=== PATIENT | female | born 1940 ===

== ENCOUNTER 2018-03-02 11:36 | Inpatient (IN) | payer OTHER ==
[~2018-03-02] VITALS: Ht 172.7 cm; Wt 59.9 kg
--- NOTE | ~2018-03-02 | PR ---
[place], [place] PROGRESS NOTE NAME: SAI KIMBROUGH UNIT #: [id number] ROOM: 312 DOCTOR: PENELOPE WESLEY MD BIRTHDATE: [birth year] DOS: 03/09/2018 CHIEF COMPLAINT: "Oh, I am so tired. I think if I just got a little more sleep I would be better." SUMMARY OF THE VISIT: The patient was interviewed as she was resting quietly in bed. She awoke easily and engaged readily in conversation, reporting that she was very drowsy this morning, but did get up have breakfast and went back to sleep. She was pleasantly confused and offered no other complaints. There was no agitation or aggression noted. MENTAL STATUS: She remains alert and oriented to person, possibly place, not to time. Mood does seem to be strongly trending towards euthymia. Affect is more appropriate. There is no des, hypomania or gross psychosis. Short term memory continues to be problematic. Otherwise, she is intact. PLAN: I will maintain her current psychotropic regimen, support and monitor, engage in individual and esparza milieu activity, returning to the least restrictive environment when psychiatrically stable. PENELOPE WESLEY MD CM:PNTRANS [id number] PENELOPE WESLEY MD 03/09/18 1413 interface
--- NOTE | ~2018-03-02 | PR ---
[place], [place] PROGRESS NOTE NAME: SAI KIMBROUGH UNIT #: [id number] ROOM: 312 DOCTOR: PENELOPE WESLEY MD BIRTHDATE: [birth year] DOS: 03/08/2018 INTERVAL NOTE CHIEF COMPLAINT: "Oh, hello there. Thank you for visiting." SUMMARY OF THE VISIT: The patient was interviewed as she was sitting having already eaten her breakfast. She smiled upon approach and engaged readily in conversation. She did report that she is hopeful to be able to get back to [place] in [place] soon. She was very conversant and engaging as compared to upon admission when she had a very hard time processing and answering questions appropriately. She smiled at the resident that was with me and remembered seeing her yesterday. MENTAL STATUS: She is alert and oriented with time gaps. Mood does seem to be trending towards euthymia. Affect is more appropriate. There is no des or hypomania. There are no gross auditory or visual hallucinations. Short-term memory continues to be problematic. Otherwise, she is intact. PLAN: I will renew her p.r.n. Ativan in case she requires intervention. Otherwise, maintain the current psychotropics, engage in individual and esparza milieu activity, returning then back to the assisted living in [place] when stable. PENELOPE WESLEY MD CM:PNTRANS [phone] PENELOPE WESLEY MD 03/09/18 0116 interface
--- NOTE | ~2018-03-02 | PR ---
[place], [place] PROGRESS NOTE NAME: SAI KIMBROUGH UNIT #: [id number] ROOM: 312 DOCTOR: PAMELA SANTORO MD BIRTHDATE: [birth year] DOS: 03/05/2018 SUBJECTIVE: The patient seen and spoke with the staff. Per staff, the patient is doing well. No behavior problems or issues. Medication compliant. The patient was in the day area she was with a group of other patient participating in activities. She reports doing good. She reports good sleep and appetite. She denied depressed mood or hopelessness. She denied any auditory or visual hallucination also. She feels that the medication is helping her. MENTAL STATUS EXAMINATION: Pleasant, cooperative. Describes her mood as "good." Affect, mood congruent. Thought process goal directed. No flight of ideas, loosening of association. She denied auditory or visual hallucination. No delusion or paranoia noted. She denies suicidal ideation, intent or plan. She also denied homicidal ideation, intent or plan. PLAN: 1. Please continue current medication and care. 2. Continue redirection. 3. Supportive care. PAMELA SANTORO MD CM:PNTRANS 193 PAMELA SANTORO MD 03/06/18 0934 interface
--- NOTE | ~2018-03-02 | PR ---
[place], [place] PROGRESS NOTE NAME: SAI KIMBROUGH UNIT #: [id number] ROOM: 312 DOCTOR: PENELOPE WESLEY MD BIRTHDATE: [birth year] DOS: 03/07/2018 CHIEF COMPLAINT: "Oh, yes I have been here about a month, thank you." SUMMARY OF THE VISIT: The patient was interviewed as she was sitting in the dining area. She had already completed breakfast. She could not tell me what she had eaten. She was pleasantly confused for the most part. Nurses report that she has been very confused over the weekend and needs constant reminders to be able to be prompted to do the right thing. MENTAL STATUS: She is alert and oriented to self only. It is unclear if she realizes she is in the hospital. She is certainly not oriented to time. Mood does seem to be fairly euthymic with some anxious fretful overtones. There is no des, hypomania or psychosis. Short-term memory is extremely problematic. PLAN: I will attempt to simplify her medication regimen. She has not been aggressive or agitated, so I will discontinue the Depakote and see if this improves mental status. Family and concerned others have reported that anxiety is one of her overriding issues that leads to her agitation. She does get good relief from the p.r.n. Ativan, so I will go ahead and order Ativan 0.5 mg 3 times a day. I will also maximize out Namenda from 5 mg b.i.d. to 10 mg b.i.d. support and monitor, engage in individual and esparza milieu, returning to the least restrictive environment when stable. PENELOPE WESLEY MD CM:PNTRANS 1120 PENELOPE WESLEY MD 03/07/18 1117 interface
--- NOTE | ~2018-03-02 | WRIGHTHP ---
[place], [place] PATIENT HISTORY AND PHYSICAL EXAM NAME: SAI KIMBROUGH UNIT #: [id number] ROOM: 312 DOCTOR: PENELOPE WESLEY MD BIRTHDATE: [birth year] DOS: 03/03/2018 INITIAL PSYCHIATRIC EVALUATION CHIEF COMPLAINT: "I wanted to get out and leave and they wouldn't let me, so I got very upset." HISTORY OF PRESENT ILLNESS: This is a 77-year-old white female who lives at [facility] in [place]. The patient was sent here after becoming increasingly aggressive at the facility. She had been striking out at residents and visitors with her cane. When attempted to be redirected, she became even more agitated. She had attempted to elope on multiple occasions and again when attempted to be redirected by staff, she became both verbally and physically aggressive. Staff there feared for her safety as well as the safety of other resident's, visitors, and themselves and felt that an inpatient stabilization was warranted. PAST MEDICAL HISTORY: Remarkable for coronary artery disease, congestive heart failure, GERD, hyperlipidemia, hypertension, hypothyroidism, ovarian cyst, and restless leg syndrome. SOCIAL HISTORY: The patient does not drink alcohol, use illicit drugs, or smoke cigarettes. FAMILY HISTORY: Positive for cancer and diabetes. ALLERGIES: She lists multiple allergies to PENICILLIN, STATINS, TETRACYCLINE, VOLTAREN, MORPHINE AND QUININE. STRENGTHS: Ambulatory, good verbal skills. WEAKNESSES: Poor coping skills, cognitive impairment. MENTAL STATUS: She is alert and oriented to person, place, not time. Mood does seem to be somewhat labile. Affect is inappropriate at times. There is a delusional quality and some paranoia present. She processes information slowly. Short term memory remains problematic. DIAGNOSIS: Brief psychotic disorder and Alzheimer's dementia. PLAN: I am going to go ahead and discontinue her Valium to simplify her regimen. Start Invega 3 mg in the morning to combat the delusional system. Her screening examination show her to have a low vitamin D level of 27.2. So I will augment with vitamin D 5000 international units daily, vitamin B12 is low normal at 322. I will order vitamin B12 injection 1000 mcg IM monthly. I did already start Depakote 250 mg 3 times a day to decrease some of her mood lability and impulsivity. We will attempt to engage her in individual and esparza milieu activity, returning then to the least restrictive environment when psychiatrically stable. [place], [place] PATIENT HISTORY AND PHYSICAL EXAM NAME: SAI KIMBROUGH UNIT #: [id number] ROOM: [facility] DOCTOR: PENELOPE WESLEY MD BIRTHDATE: [birth year] PENELOPE WESLEY MD CM:HISPHYS:PATIENT HISTORY AND PHYSICAL EXAMINATION [id number] PENELOPE WESLEY MD 03/03/18 1255 interface
--- NOTE | ~2018-03-02 | EKG ---
[place], [place] ELECTROCARDIOGRAM REPORT NAME: SAI KIMBROUGH UNIT #: [id number] ROOM: 312 DOCTOR: AVINASH DRAFT REPORT BIRTHDATE: [birth year] [facility] Test Date: 2018-03-04 Test Time: 10:39:45 Pat Name: SAI KIMBROUGH Department: Room: 312 2 Gender: F Warehouse Hand: CINDY : 1940 Requested By: YURIDIA OLMOS Order Number: [id number] Reading MD: Kelly Cain MD Measurements Intervals [place] Rate: 61 P: AL: QRS: -13 QRSD: 81 T: -74 QT: 445 QTc: 449 Interpretive Statements Atrial fibrillation with controlled ventricular rates Borderline low voltage, extremity leads Abnormal R-wave progression, early transition No previous ECG available for comparison Electronically Signed On 03-04-2018 8:40:25 PDT by Kelly Cain MD CM:EKGRPT:ELECTROCARDIOGRAM REPORT [id number] YURIDIA JOY DRAFT REPORT YURIDIA OLMOS DO
--- NOTE | ~2018-03-02 | PR ---
[place], [place] PROGRESS NOTE NAME: SAI KIMBROUGH UNIT #: [id number] ROOM: 312 DOCTOR: PAMELA SANTORO MD BIRTHDATE: [birth year] DOS: 03/06/2018 SUBJECTIVE: The patient seen and I spoke with the staff. Per staff, the patient is pleasantly confused. No behavior problems or issues, needs redirection. The patient was pleasant and cooperative. She was sitting in the day area. She reports doing well, denied any problems or concerns. She said that she slept well last night and also reports good appetite. MENTAL STATUS EXAMINATION: The patient was pleasant and cooperative. Described her mood as "okay." Affect, mood congruent. Thought processes with confabulation. She denied auditory or visual hallucination. No delusion or paranoia noticed. She denies suicidal ideation, intent or plan. She also denied homicidal ideation, intent or plan. PLAN: 1. Continue current medications and care. 2. Continue redirection. 3. Supportive care. PAMELA SANTORO MD CM:PNTRANS [phone] PAMELA SANTORO MD 03/07/18132 interface
--- NOTE | ~2018-03-02 | DS ---
[place], [place] DISCHARGE SUMMARY NAME: SAI KIMBROUGH UNIT #: [id number] ROOM: 312 DOCTOR: PENELOPE WESLEY MD BIRTHDATE: [birth year] DOS: 03/10/2018 CHIEF COMPLAINT: "I want to get out and leave and they wouldn't let me leave, so I got very upset." HISTORY OF PRESENT ILLNESS: This is a 77-year-old white female who resides at [facility] in [place], [place]. The patient was sent here after becoming increasingly aggressive at the facility. She had been striking out at residents and visitors with her cane. When staff attempted to redirect her, she became even more agitated. She had attempted to elope the facility on multiple occasions and again when redirected became both verbally and physically aggressive towards staff. Staff at the facility feared for her safety as well as the safety of other residents, visitors and themselves and felt that an inpatient stabilization was warranted. The patient was admitted then to the [facility] to rule out organic factors, to stabilize on medication, to engage in individual and esparza milieu activity and to determine the least restrictive environment to which she could be returned. SUMMARY OF HOSPITAL COURSE: The patient was admitted to the unit where she was found to be grossly delusional and paranoid. She was also very confused and disoriented. Routine screening examinations upon admission showed her to have a low vitamin D level of 27.2, so vitamin D 5000 International Units daily was prescribed. Her vitamin B12 level was low normal at 322, so she was started on vitamin B12 injections 1000 mcg IM monthly. Initially, she was started on Depakote 250 mg 3 times a day as well as low dose Invega 3 mg in the morning. She tolerated the medications well without any apparent side effects. Her Namenda that was present upon admission was maintained at 10 mg twice daily. Family did report that she had a bad response in the past to cholinesterase inhibitor, so we did not initiate any type of cholinesterase inhibitor to augment the effectiveness of the Namenda. Eventually, it became evident that much of her agitation was made worse when she became anxious and for this reason, Depakote was discontinued and low dose Ativan 0.5 mg 3 times a day was utilized in its place as to not to overmedicate her. With the Ativan and the Invega in place, the patient did improve dramatically. She no longer was anxious or ____ seeking. She was able to attend to groups, attend to her ADLs. Her sleep and appetite had fairly normalized. She had improved sufficiently to return back to [place] in [place] on 03/10/2018. MENTAL STATUS AT DISCHARGE: She is alert and oriented to person, place, not necessarily time. Mood does seem to be strongly trending towards euthymia. Affect is more appropriate. There is no des, hypomania or psychosis. Short-term memory continues to be problematic. FINAL DIAGNOSES UPON DISCHARGE: Brief psychotic disorder, intermittent explosive disorder, and Alzheimer's dementia. DISPOSITION: All of her prescriptions have been E-scribed to the [facility] in [place] except for Ativan, which was printed for 1 week. She is medically and psychiatrically stable at the time of admission, no acute issues are present at this time. [place], [place] DISCHARGE SUMMARY NAME: SAI KIMBROUGH UNIT #: [id number] ROOM: 312 DOCTOR: PENELOPE WESLEY MD BIRTHDATE: [birth year] PENELOPE WESLEY MD CM:CAR [id number] PENELOPE WESLEY MD 03/10/18 1929 interface
[2018-03-02] MEDS ORDERED: BYSTOLIC2.5 MG PO (12:09)
[2018-03-02] MEDS ORDERED: CALTRATE 600 P1 EACH PO (12:10)
[2018-03-02] MEDS ORDERED: VALIUM2 MG PO (12:12)
[2018-03-02] MEDS ORDERED: DIGOX125 MCG PO (12:14)
[2018-03-02] MEDS ORDERED: VYTORIN 10-101 EACH PO (12:15)
[2018-03-02] MEDS ORDERED: IMDUR SA60 M1 PO (12:17)
[2018-03-02] MEDS ORDERED: KLOR-CON SPRIN10 MEQ PO (12:20)
[2018-03-02] MEDS ORDERED: LASIX40 MG PO (12:20)
[2018-03-02] MEDS ORDERED: Synthroid,Levo25 MCG PO (12:22)
[2018-03-02] MEDS ORDERED: MIRALAX17 GM PO (12:22)
[2018-03-02] MEDS ORDERED: NIFEDIPINE30 MG PO (12:23)
[2018-03-02] MEDS ORDERED: OMEPRAZOLE40 MG PO (12:24)
[2018-03-02] MEDS ORDERED: SEROQUEL25 MG PO (12:24)
[2018-03-02] MEDS ORDERED: RANEXA500 M1 PO (12:25)
[2018-03-02] MEDS ORDERED: VIIBRYD40 PO (12:26)
[2018-03-02] MEDS ORDERED: DIAZEPAM2 MG PO (12:31)
[2018-03-02] MEDS ORDERED: IBU-200200 MG PO (12:33)
[2018-03-02 14:57] VITALS: BP 128/69
[2018-03-02 14:58] VITALS: BP 128/69
[2018-03-02 15:12] LABS: BILIRUBIN NEGATIVE (NEGATIVE); BLOOD NEGATIVE (NEGATIVE); CLARITY CLEAR (CLEAR); COLOR YELLOW (YELLOW); GLUCOSE NEGATIVE (NEGATIVE); KETONE NEGATIVE (NEGATIVE); LEUKO ESTERASE 1+ (NEGATIVE); NITRITE NEGATIVE (NEGATIVE); UROBILINOGEN 0.2 E.U./dl (0.2-1.0)
[2018-03-02 15:20] LABS: BACTERIA 1+; EPITHELIAL CELLS 21-30; WBC 21-30 wbc/hpf (0-5)
[2018-03-02 16:39] LABS: BASO % 0.5 % (0.0-1.0); EOS # 0.1 10*3/uL (0.0-0.4); EOS % 1.2 % (1.0-4.0); HEMATOCRIT 39.9 % (37.0-47.0); HEMOGLOBIN 12.7 g/dl (12.0-16.0); LYMPH % 34.1 % (27.0-41.0); MEAN CELL VOLUME 89.1 fl (81.0-99.0); MEAN CORPUSCULAR HGB 28.3 pg (27.0-31.0); MEAN CORPUSCULAR HGB CONC 31.8 g/dl (33.0-37.0); MEAN PLATELET VOLUME 9.6 fl (9.6-12.3); MONO # 0.4 10*3/uL (0.1-1.0); MONO % 7.2 % (3.0-9.0); NEUT # 3.4 10*3/uL (2.3-7.9); NEUT % 56.5 % (47.0-73.0); PLATELET COUNT AUTOMATED 267 10*3/uL (130-400); RED BLOOD COUNT 4.48 10*6/uL (4.10-5.10); RED CELL DISTRI WIDTH 15.9 % (0-14.5)
[2018-03-02 16:52] LABS: ACT PARTIAL THROMBO TIME 22.3 SECONDS (20.8-31.5); INTERNATIONAL NORM RATIO 1.1 (2.0-3.5)
[2018-03-02 16:54] LABS: ALBUMIN 3.7 gm/dl (3.1-4.5); ALKALINE PHOSPHATASE 51 U/L (45-117); BUN 15 mg/dl (7-24); CHLORIDE 107 mmol/L (98-107); CREATININE 1.04 mg/dL (0.55-1.02); POTASSIUM 3.4 mmol/L (3.5-5.1); SGOT/AST 22 IU/L (3-35); SGPT/ALT 26 U/L (12-78); SODIUM 143 mmol/L (136-145); TOTAL PROTEIN 7.9 gm/dL (6.4-8.2)
[2018-03-02 19:51] VITALS: BP 140/62
[2018-03-03 06:30] LABS: ALBUMIN 3.5 gm/dl (3.1-4.5); ALKALINE PHOSPHATASE 54 U/L (45-117); BUN 16 mg/dl (7-24); CHLORIDE 106 mmol/L (98-107); CHOLESTEROL 163 mg/dL (<200); CREATININE 0.91 mg/dL (0.55-1.02); HDL CHOLESTEROL 50 mg/dl (40-60); LDL CHOLESTEROL 34 mg/dL (9-159); POTASSIUM 3.4 mmol/L (3.5-5.1); SGOT/AST 26 IU/L (3-35); SGPT/ALT 25 U/L (12-78); SODIUM 143 mmol/L (136-145); TOTAL PROTEIN 7.3 gm/dL (6.4-8.2); TRIGLYCERIDES 397 mg/dl (<150); VLDL CHOLESTEROL 79 mg/dL (6-40)
[2018-03-03 06:37] LABS: BASO # 0.1 10*3/uL (0.0-0.1); BASO % 0.7 % (0.0-1.0); EOS # 0.1 10*3/uL (0.0-0.4); EOS % 1.9 % (1.0-4.0); HEMATOCRIT 37.2 % (37.0-47.0); HEMOGLOBIN 11.9 g/dl (12.0-16.0); LYMPH # 2.9 10*3/uL (1.3-4.4); LYMPH % 42.6 % (27.0-41.0); MEAN CELL VOLUME 88.8 fl (81.0-99.0); MEAN CORPUSCULAR HGB 28.4 pg (27.0-31.0); MEAN PLATELET VOLUME 10.3 fl (9.6-12.3); MONO # 0.7 10*3/uL (0.1-1.0); NEUT # 2.9 10*3/uL (2.3-7.9); NEUT % 43.4 % (47.0-73.0); PLATELET COUNT AUTOMATED 244 10*3/uL (130-400); RED BLOOD COUNT 4.19 10*6/uL (4.10-5.10); WHITE BLOOD COUNT 6.7 10*3/uL (4.8-10.8)
[2018-03-03 07:34] LABS: VITAMIN D, 25-HYDROXY 27.2 ng/mL (30-100)
[2018-03-03 07:49] VITALS: BP 138/73
[2018-03-03 20:00] VITALS: BP 110/61
[2018-03-04 07:14] VITALS: BP 129/70
[2018-03-04] MEDS ORDERED: DIGOXIN125 MCG PO (11:09)
[2018-03-04 19:55] VITALS: BP 121/61
[2018-03-05 07:51] VITALS: BP 137/54
[2018-03-05 19:40] VITALS: BP 117/65
[2018-03-06 07:50] VITALS: BP 131/70
[2018-03-06 07:51] VITALS: BP 131/70
[2018-03-06 19:38] VITALS: BP 118/59
[2018-03-07 07:14] VITALS: BP 129/67
[2018-03-07 20:00] VITALS: BP 132/70
[2018-03-08 07:02] LABS: BASO % 0.4 % (0.0-1.0); EOS # 0.1 10*3/uL (0.0-0.4); EOS % 0.9 % (1.0-4.0); HEMATOCRIT 36.9 % (37.0-47.0); HEMOGLOBIN 11.9 g/dl (12.0-16.0); LYMPH # 1.8 10*3/uL (1.3-4.4); MEAN CELL VOLUME 87.9 fl (81.0-99.0); MEAN CORPUSCULAR HGB 28.3 pg (27.0-31.0); MEAN CORPUSCULAR HGB CONC 32.2 g/dl (33.0-37.0); MEAN PLATELET VOLUME 9.9 fl (9.6-12.3); MONO # 0.8 10*3/uL (0.1-1.0); MONO % 12.3 % (3.0-9.0); NEUT % 58.7 % (47.0-73.0); PLATELET COUNT AUTOMATED 231 10*3/uL (130-400); WHITE BLOOD COUNT 6.8 10*3/uL (4.8-10.8)
[2018-03-08 07:20] VITALS: BP 157/69
[2018-03-08 07:25] LABS: BUN 16 mg/dl (7-24); CHLORIDE 103 mmol/L (98-107); CREATININE 0.77 mg/dL (0.55-1.02); POTASSIUM 3.9 mmol/L (3.5-5.1); SODIUM 142 mmol/L (136-145)
[2018-03-08 19:46] VITALS: BP 114/68
[2018-03-09 07:55] VITALS: BP 117/65
[2018-03-09] MEDS ORDERED: XARE20MG PO (14:03)
[2018-03-09] MEDS ORDERED: VITAMIN D5000 UNI1 PO (14:03)
[2018-03-09 20:08] VITALS: BP 111/61
[2018-03-10 08:10] VITALS: BP 134/61
[2018-03-10] MEDS ORDERED: PALIPERIDONE ER3 MG PO (10:26)
[2018-03-10] MEDS ORDERED: LORAZEPAM0.5 MG PO (10:26)
[2018-03-10] MEDS ORDERED: B121000 MCG/1 IM (10:26)
[2018-03-10] MEDS ORDERED: MEMANTINE HCL10 MG PO (10:26)
== END 2018-03-10 15:00 | disposition home or self-care (01) | DRG 885 ==
LOC: 3N 11:36
PROVIDERS: Internal Medicine; Psychiatry & Neurology Psychiatry; Student in an Organized Health Care Education/Training Program
DX: F23 Brief psychotic disorder (principal); N17.0 Acute kidney failure with tubular necrosis; F02.81 Dementia in other diseases classified elsewhere, unspecified severity, with behavioral disturbance; D68.69 Other thrombophilia; N39.0 Urinary tract infection, site not specified; F32.9 Major depressive disorder, single episode, unspecified; F41.9 Anxiety disorder, unspecified; R82.71 Bacteriuria; I25.10 Atherosclerotic heart disease of native coronary artery without angina pectoris; I50.9 Heart failure, unspecified; G30.9 Alzheimer's disease, unspecified; E87.6 Hypokalemia; I48.91 Unspecified atrial fibrillation; K21.9 Gastro-esophageal reflux disease without esophagitis; E78.5 Hyperlipidemia, unspecified; I11.0 Hypertensive heart disease with heart failure; R73.9 Hyperglycemia, unspecified; E03.9 Hypothyroidism, unspecified; G25.81 Restless legs syndrome; Z90.49 Acquired absence of other specified parts of digestive tract; Z95.1 Presence of aortocoronary bypass graft; Z90.710 Acquired absence of both cervix and uterus; Z95.5 Presence of coronary angioplasty implant and graft; Z79.899 Other long term (current) drug therapy; Z88.0 Allergy status to penicillin; Z88.1 Allergy status to other antibiotic agents; Z88.5 Allergy status to narcotic agent; Z88.8 Allergy status to other drugs, medicaments and biological substances; Z83.3 Family history of diabetes mellitus; Z80.8 Family history of malignant neoplasm of other organs or systems